=== PATIENT | male | born 1950 | race Caucasian/White ===

== ENCOUNTER 2017-08-03 17:19 | Emergency (ER) | payer MEDICARE, BC ==
[~2017-08-03] VITALS: Ht 182.9 cm; Wt 103.0 kg
[~2017-08-03 17:19] MED LIST: AMOXICILLIN875 MG PO; ASPIRIN EC81 MG PO; CLARITIN10 MG PO; CRESTOR10 MG PO; FISH OIL1000 MG PO; FLONASE 60 DOS0.05 %; HYDROCHLOROT25 MG PO; IBUPROFEN600 MG PO; NORMODYNE/TRAN100 MG PO; PROSCAR5 MG PO; PROTONIX40 MG PO
[2017-08-03] MEDS ORDERED: LIPITOR20 M1 PO (17:38)
[2017-08-03] MEDS ORDERED: ORPHENADRINE C100 MG PO (17:39)
[2017-08-03 18:27] LABS: INFLUENZA A NONE DETECTED (NONE DETECT); INFLUENZA B NONE DETECTED (NONE DETECT)
[2017-08-03] MEDS ORDERED: FLONASE AL50 MCG/ACT (18:32)
[2017-08-03] MEDS ORDERED: ROBITUSSIN AC10 ML PO (18:32)
[2017-08-03] MEDS ORDERED: AMOX/K CLAV875 M1 PO (18:32)
[2017-08-03 19:15] VITALS: BP 114/64
== END 2017-08-03 19:15 | disposition home or self-care (01) ==
LOC: ED 17:19
PROVIDERS: Emergency Medicine
DX: J02.0 Streptococcal pharyngitis (principal); J32.9 Chronic sinusitis, unspecified; I10 Essential (primary) hypertension; K21.9 Gastro-esophageal reflux disease without esophagitis

== ENCOUNTER 2022-07-28 22:35 | Emergency (ER) | payer MEDICARE, BC ==
[~2022-07-28] VITALS: Ht 185.4 cm; Wt 100.0 kg
[~2022-07-28 22:35] MED LIST changes: +AMOX/K CLAV875 M1 PO; +FLONASE AL50 MCG/ACT; +LIPITOR20 M1 PO; +ORPHENADRINE C100 MG PO; +ROBITUSSIN AC10 ML PO
[2022-07-28 23:12] LABS: BASO% 0.2 % (0-3); EOS% 0.1 % (0-8); HEMATOCRIT 40.5 % (39.0-50.0); HEMOGLOBIN 14.9 g/dl (14.0-18.0); IMMATURE GRANULOCYTES 0.8 % (0.0-5.0); LYMPH% 3.2 % (15-41); MEAN CORPUSCULAR HGB 33.1 pG CALC (26.0-32.0); MEAN CORPUSCULAR HGB CONC 36.8 g/dL CAL (32.0-36.0); MONO% 2.9 % (2-13); NEUT# 8.4 thou/uL (1.82-7.42); NEUT% 92.8 % (42-76); RED BLOOD COUNT 4.5 mill/uL (4.70-6.10); RED CELL DISTRI WIDTH 12.5 % (11.5-15.5)
[2022-07-28 23:33] LABS: ALBUMIN 4.3 g/dL (3.2-5.0); BUN 13 mg/dL (8-23); BUN/CREATININE RATIO 15 (12-20 (CALC)); CARBON DIOXIDE 25 mmol/l (22-30); CHLORIDE 99 mmol/l (95-108); CREATININE 0.9 mg/dL (0.7-1.3); GFR FOR AFR.AMER. > 60 ML/MIN (>=60 (CALC)); GFR OTHER RACES > 60 ML/MIN (>=60 (CALC)); SODIUM 134 mmol/l (137-146); TOTAL PROTEIN 7.2 g/dL (6.3-8.2)
[2022-07-28 23:40] LABS: ALKALINE PHOSPHATASE 118 u/l (38-126); ANION GAP 13 (6-22 (CALC)); BILIRUBIN, TOTAL 3.8 mg/dL (0.0-1.4); SGOT/AST 233 u/l (19-48)
[2022-07-29 00:01] VITALS: BP 112/58
[2022-07-29 00:23] LABS: URINE BLOOD DIPSTICK NEGATIVE (NEGATIVE); URINE COLOR YELLOW; URINE GLUCOSE - DIPSTICK NEGATIVE (NEGATIVE); URINE KETONE NEGATIVE (NEGATIVE); URINE LEUK ESTERASE NEGATIVE (NEGATIVE); URINE PROTEIN - DIPSTICK NEGATIVE (NEG-TRACE)
[2022-07-29 00:24] LABS: URINE BILIRUBIN - DIPSTICK SMALL (NEGATIVE)
[2022-07-29 00:25] LABS: URINE NITRITE - DIPSTICK NEGATIVE (Negative)
[2022-07-29 01:26] VITALS: BP 112/58
== END 2022-07-29 01:26 | disposition home or self-care (01) ==
LOC: ED 22:35
PROVIDERS: Emergency Medicine
DX: B34.9 Viral infection, unspecified (principal); R74.8 Abnormal levels of other serum enzymes; I10 Essential (primary) hypertension; K21.9 Gastro-esophageal reflux disease without esophagitis; Z20.822 Contact with and (suspected) exposure to COVID-19